=== PATIENT | male | born 1970 | race Caucasian/White ===

== ENCOUNTER 2017-04-20 08:53 | Emergency (ER) | payer BC ==
[~2017-04-20] VITALS: Ht 177.8 cm; Wt 98.5 kg
[2017-04-20] MEDS ORDERED: SODIUM CHLORIDE 0.9% 1000ML 1,000 ML IV SCH (09:15)
[2017-04-20] MEDS ORDERED: SODIUM CHLORIDE 0.9% 1000ML 1,000 ML IV STA (09:15)
--- NOTE | 2017-04-20 09:16 | EMERGENCY ROOM VISIT NOTE ---
History Report prepared by Osmar: Eliza Hughes Under the Supervision of: Dr. Germain Covarrubias M.D. First contact with patient: 09:05 Chief Complaint: DIZZY Stated Complaint: NUMBNESS IN R HAND AND FACE,DIZZY History of Present Illness The patient is a 46 year old male who presents to the Emergency Room with complaints of persistent right hand numbness that began around 2100 last evening. He currently rates his discomfort as a 5/10 in severity. The patient reports he was sitting at his computer when his symptoms began. He states that he began feeling dizzy and weak. The patient states that he had a sharp pain in the back of his neck. He denies any headache or head injury. The patient additionally reports nausea. He reports noticing a rash to his left side but states that it has resolved. The patient states that he has a history of throat cancer, noting that he has been in remission since 2010. Source of History: patient Onset: 2100 last evening Position: hand (right) Symptom Intensity: 5/10 Quality: numbness Timing: other (persistent) Associated Symptoms: + nausea, + weakness, + rash, No headache Note: Associated Symptoms: dizzy Review of Systems See HPI for pertinent positives & negatives. A total of 10 systems reviewed and were otherwise negative. Past Medical & Surgical Medical Problems: (1) Acid reflux (2) Throat cancer (3) TIA (transient ischemic attack) Surgical Problems: (1) History of appendectomy (2) History of herniorrhaphy Family History Cancer Diabetes mellitus Hypertension Social History Smoking Status: Never Smoker Smokeless Tobacco Use: No Alcohol Use: occasionally Marital Status: Housing Status: lives with family Occupation Status: employed Current/Historical Medications No Active Prescriptions or Reported Meds Allergies Coded Allergies: No Known Allergies (Unverified , 04/20/17) Uncoded Allergies: SOME FRIUTS (Allergy, Unknown, SWELLING IN THE THROAT, 07/11/04) Physical Exam Vital Signs Date Time Temp Pulse Resp B/P (MAP) Pulse Ox O2 Delivery O2 Flow Rate FiO2 04/20/17 10:09 95 Room Air 04/20/17 10:09 96 17 148/108 96 Room Air 04/20/17 09:13 109 04/20/17 08:59 36.5 107 18 148/102 99 Room Air Physical Exam GENERAL: Patient is a healthy-appearing well-nourished male HEAD: Normocephalic atraumatic EYES: Ocular movements intact pupils equal and react to light OROPHARYNX mucous membranes are moist no exudates present no erythema or edema present NECK: Supple no nuchal rigidity CHEST: Good equal expansion LUNGS: Clear and equal to auscultation CARDIAC: Normal S1 and S2 ABDOMEN: Soft nontender no guarding BACK: No CVA tenderness EXTREMITIES: No pain upon palpation normal muscle strength in all groups no clubbing cyanosis or edema NEURO: Patient is following commands and answering questions appropriately. Alert and oriented x3 Cranial Nerves 2-12 grossly intact Medical Decision & Procedures ER Provider Diagnostic Interpretation: Radiology results as stated below per my review and radiologist interpretation: HEAD WITHOUT CONTRAST (CT) CLINICAL HISTORY: 46 years-old Male with Stroke. Acute right-sided numbness and dizziness. TECHNIQUE: Multiple axial CT images of the head were obtained without contrast. A dose lowering technique was utilized adhering to the principles of ALARA. CT DOSE: 669.45 mGycm COMPARISON: None. FINDINGS: No acute intracranial hemorrhage, midline shift, mass, large territorial ischemia or abnormal extra-axial collection. The calvarium is intact. The paranasal sinuses, mastoid air cells, and middle ear cavities are clear. IMPRESSION: No acute intracranial abnormality. The above report was generated using voice recognition software. It may contain grammatical, syntax or spelling errors. Electronically signed by: Joe Jaffe M.D. 04/20/2017 9:42 AM Dictated Date/Time: 04/20/2017 9:41 AM CHEST ONE VIEW PORTABLE HISTORY: 46 years-old Male Stroke acute dizziness with right hand numbness. COMPARISON: Upper GI 11/30/2009 TECHNIQUE: Portable upright AP view of the chest. FINDINGS: Marked elevation left hemidiaphragm is again seen with gaseous distention of the stomach. Cardiac silhouette is within normal limits. There is no pneumothorax or pleural effusion. Left basilar subsegmental atelectasis or scarring is present. The bones are grossly intact. There is a partially imaged chondroid appearing lesion of the proximal right humerus, 2.1 cm. IMPRESSION: 1. No acute cardiopulmonary process. 2. Redemonstration of marked left hemidiaphragm elevation with subsegmental left basilar atelectasis or scarring. 3. Partially imaged chondroid appearing lesion of the proximal right humerus measuring up to 2.1 cm suggests endochondroma. This could be further evaluated with dedicated humeral radiographs. The above report was generated using voice recognition software. It may contain grammatical, syntax or spelling errors. Electronically signed by: Joe Jaffe M.D. 04/20/2017 9:38 AM Dictated Date/Time: 04/20/2017 9:32 AM Laboratory Results 04/20/17 09:18 Red Blood Count 5.12, Mean Corpuscular Volume 90.8, Mean Corpuscular Hemoglobin 32.8, Mean Corpuscular Hemoglobin Concent 36.1, Mean Platelet Volume 9.3, Neutrophils (%) (Auto) 83.0, Lymphocytes (%) (Auto) 11.1, Monocytes (%) (Auto) 5.4, Eosinophils (%) (Auto) 0.1, Basophils (%) (Auto) 0.2, Neutrophils # (Auto) 6.96, Lymphocytes # (Auto) 0.93, Monocytes # (Auto) 0.45, Eosinophils # (Auto) 0.01, Basophils # (Auto) 0.02 04/20/17 09:18 Test 04/20/17 09:10 04/20/17 09:18 04/20/17 09:19 04/20/17 09:20 Urine Color YELLOW Urine Appearance CLEAR (CLEAR) Urine pH 6.5 (4.5-7.5) Urine Specific [place] 1.027 (1.000-1.030) Urine Protein 1+ (NEG) Urine Glucose (UA) 1+ (NEG) Urine Ketones TRACE (NEG) Urine Occult Blood NEG (NEG) Urine Nitrite NEG (NEG) Urine Bilirubin NEG (NEG) Urine Urobilinogen NEG (NEG) Urine Leukocyte Esterase NEG (NEG) Urine WBC (Auto) 1-5 /hpf (0-5) Urine RBC (Auto) 0-4 /hpf (0-4) Urine Hyaline Casts (Auto) 5-10 /lpf (0-5) Urine Epithelial Cells (Auto) >30 /lpf (0-5) Urine Bacteria (Auto) NEG (NEG) Urine Renal Epithelial Cells /lpf (0-5) Urine Pathogenic Casts 0-3 GRANULAR CASTS /lpf (0) Urine Mucus PRESENT (NONE PRSENT) White Blood Count 8.39 K/uL (4.8-10.8) Red Blood Count 5.12 M/uL (4.7-6.1) Hemoglobin 16.8 g/dL (14.0-18.0) Hematocrit 46.5 % (42-52) Mean Corpuscular Volume 90.8 fL (80-100) Mean Corpuscular Hemoglobin 32.8 pg (25-34) Mean Corpuscular Hemoglobin Concent 36.1 g/dl (32-36) Platelet Count 208 K/uL (130-400) Mean Platelet Volume 9.3 fL (7.4-10.4) Neutrophils (%) (Auto) 83.0 % Lymphocytes (%) (Auto) 11.1 % Monocytes (%) (Auto) 5.4 % Eosinophils (%) (Auto) 0.1 % Basophils (%) (Auto) 0.2 % Neutrophils # (Auto) 6.96 K/uL (1.4-6.5) Lymphocytes # (Auto) 0.93 K/uL (1.2-3.4) Monocytes # (Auto) 0.45 K/uL (0.11-0.59) Eosinophils # (Auto) 0.01 K/uL (0-0.5) Basophils # (Auto) 0.02 K/uL (0-0.2) RDW Standard Deviation 41.9 fL (36.4-46.3) RDW Coefficient of Variation 12.6 % (11.5-14.5) Immature Granulocyte % (Auto) 0.2 % Immature Granulocyte # (Auto) 0.02 K/uL (0.00-0.02) Prothrombin Time 11.2 SECONDS (9.0-12.0) Prothromb Time International Ratio 1.0 (0.9-1.1) Activated Partial Thromboplast Time 23.5 SECONDS (21.0-31.0) Partial Thromboplastin Ratio 0.9 Anion Gap 6.0 mmol/L (3-11) Est Creatinine Clear Calc Drug Dose 134.1 ml/min Estimated GFR () 123.5 Estimated GFR (Non- 106.6 BUN/Creatinine Ratio 10.4 (10-20) Estimated Average Glucose 91 mg/dl Hemoglobin A1c 4.8 % (4.5-5.6) Calcium Level 9.4 mg/dl (8.5-10.1) Total Creatine Kinase 93 U/L (39-308) Creatine Kinase MB 0.7 ng/ml (0.5-3.6) Creatine Kinase MB Ratio 0.8 (0-3.0) Troponin I < 0.015 ng/ml (0-0.045) Bedside Glucose 128 mg/dl (70-99) Bedside Prothrombin Time INR 1.0 (0.9-1.1) Test 04/20/17 10:02 Lyme Disease IgG Antibody NEG (NEG) Lyme Disease IgM Antibody NEG (NEG) Labs reviewed by ED physician. Medications Administered Medications (Trade) Dose Ordered Sig/Flako Route Start Time Stop Time Status Last Admin Dose Admin Sodium Chloride 1,000 ml @ 50 mls/hr Q20H IV 04/20/17 09:15 05/20/17 09:14 04/20/17 10:51 50 MLS/HR Sodium Chloride 1,000 ml @ 999 mls/hr Q1H1M STAT IV 04/20/17 09:15 04/20/17 10:15 DC 04/20/17 09:30 999 MLS/HR Aspirin (Aspirin Chew) 324 mg NOW STAT PO 04/20/17 09:43 04/20/17 09:44 DC 04/20/17 10:13 324 MG Ondansetron HCl (Zofran Inj) 4 mg NOW STAT IV 04/20/17 10:38 04/20/17 10:39 DC 04/20/17 10:50 4 MG ECG Indication: weakness Rate (beats per minute): 109 Rhythm: sinus tachycardia Findings: no acute ischemic change, no ectopy ED Course 0909: Past medical records reviewed. The patient was evaluated in room A12B. A complete history and physical examination was performed. 0915: Ordered Sodium Chloride 1000 ml @ 999 mls/hr IV, Sodium Chloride 1000 ml @ 50 mls/hr IV. 0943: Ordered Aspirin 324 mg PO. 1020: I reevaluated the patient and he is resting. I discussed the exam findings with him and I discussed the treatment plan. He verbalized complete understanding and agreement. He will be evaluated for further treatment. 1026: I discussed the patients case with Dr. Graves [facility]. He is going to evaluate the patient for further treatment. 1038: Ordered Zofran Inj 4 mg IV. Medical Decision Differential diagnosis: Etiologies such as metabolic, infection, hypo/hyperglycemia, electrolyte abnormalities, cardiac sources, intracerebral event, toxicologic, neurologic, as well as others were entertained. This is a 46-year-old male who presents emergency department complaining of right sided facial numbness as well as right sided arm numbness. The patient is also hypertensive. The patient does not normally follow-up with his primary care physician and is on no medications. He does have a history of throat cancer and based on these findings I felt that the patient should be admitted for stroke workup. An IV was established, patient given normal saline bolus, aspirin. Repeat examination revealed improvement patient's symptoms. I did discuss the case with the hospitalist who agreed to admit the patient. Patient was in agreement with the treatment plan. Medication Reconcilliation Current Medication List: was personally reviewed by me Blood Pressure Screening Patient's blood pressure: Elevated blood pressure Blood pressure disposition: Referred to PCP Consults Time Called: 1021 Consulting Physician: BARBARA Herndon Returned Call: 1026 I discussed the patients case with BARBARA Herndon. He is going to evaluate the patient for further treatment. Impression Primary Impression: Numbness on right side Scribe Attestation The scribe's documentation has been prepared under my direction and personally reviewed by me in its entirety. I confirm that the note above accurately reflects all work, treatment, procedures, and medical decision making performed by me. Departure Information Dispostion Being Evaluated By Hospitalist Prescriptions No Active Prescriptions or Reported Meds Referrals Jamar Freed M.D. (PCP) Stroke History Time Last Known Well 2100 last evening Stroke t-PA Criteria Reviewed Does NOT meet criteria for t-PA Reason t-PA Not Given Treatment not indicated
[2017-04-20 09:37] LABS: BASO % 0.2 %; BASO ABS # 0.02 K/uL (0-0.2); COMPLETE YES; EOS % 0.1 %; HEMATOCRIT 46.5 % (42-52); IG% 0.2 %; LYMPH % 11.1 %; LYMPH ABS # 0.93 K/uL (1.2-3.4); MEAN CELL VOLUME 90.8 fL (80-100); MEAN CORPUSCULAR HEMOGLOBIN 32.8 pg (25-34); MEAN CORPUSCULAR HGB CONC 36.1 g/dl (32-36); MEAN PLATELET VOLUME 9.3 fL (7.4-10.4); MONO % 5.4 %; PLATELET COUNT 208 K/uL (130-400); RED BLOOD COUNT 5.12 M/uL (4.7-6.1); WHITE BLOOD COUNT 8.39 K/uL (4.8-10.8)
--- NOTE | 2017-04-20 09:39 | DIAGNOSTIC IMAGING REPORT ---
CHEST ONE VIEW PORTABLE HISTORY: 46 years-old Male Stroke acute dizziness with right hand numbness. COMPARISON: Upper GI 11/30/2009 TECHNIQUE: Portable upright AP view of the chest. FINDINGS: Marked elevation left hemidiaphragm is again seen with gaseous distention of the stomach. Cardiac silhouette is within normal limits. There is no pneumothorax or pleural effusion. Left basilar subsegmental atelectasis or scarring is present. The bones are grossly intact. There is a partially imaged chondroid appearing lesion of the proximal right humerus, 2.1 cm. IMPRESSION: 1. No acute cardiopulmonary process. 2. Redemonstration of marked left hemidiaphragm elevation with subsegmental left basilar atelectasis or scarring. 3. Partially imaged chondroid appearing lesion of the proximal right humerus measuring up to 2.1 cm suggests endochondroma. This could be further evaluated with dedicated humeral radiographs. The above report was generated using voice recognition software. It may contain grammatical, syntax or spelling errors. Electronically signed by: Joe Jaffe M.D. 04/20/2017 9:38 AM Dictated Date/Time: 04/20/2017 9:32 AM
[2017-04-20 09:40] LABS: URINE APPEARANCE CLEAR (CLEAR); URINE BILIRUBIN NEG (NEG); URINE COLOR YELLOW; URINE EPITHELIAL CELL AUTO >30 /lpf (0-5); URINE NITRITE NEG (NEG); URINE PH 6.5 (4.5-7.5); URINE SPECIFIC GRAVITY 1.027 (1.000-1.030); UROBILINOGEN NEG (NEG); ZZUR CULT IF INDIC CLEAN CATCH NO
[2017-04-20 09:43] LABS: MANUAL MICROSCOPIC REQUIRED? NO; REVIEW REQ? YES
[2017-04-20] MEDS ORDERED: ASPIRIN 81 MG CHEW PO STA (09:43)
--- NOTE | 2017-04-20 09:43 | DIAGNOSTIC IMAGING REPORT ---
HEAD WITHOUT CONTRAST (CT) CLINICAL HISTORY: 46 years-old Male with Stroke. Acute right-sided numbness and dizziness. TECHNIQUE: Multiple axial CT images of the head were obtained without contrast. A dose lowering technique was utilized adhering to the principles of ALARA. CT DOSE: 669.45 mGycm COMPARISON: None. FINDINGS: No acute intracranial hemorrhage, midline shift, mass, large territorial ischemia or abnormal extra-axial collection. The calvarium is intact. The paranasal sinuses, mastoid air cells, and middle ear cavities are clear. IMPRESSION: No acute intracranial abnormality. The above report was generated using voice recognition software. It may contain grammatical, syntax or spelling errors. Electronically signed by: Joe Jaffe M.D. 04/20/2017 9:42 AM Dictated Date/Time: 04/20/2017 9:41 AM
[2017-04-20 09:46] LABS: PARTIAL THROMBOPLASTIN RATIO 0.9; PROTHROMBIN TIME (PATIENT) 11.2 SECONDS (9.0-12.0)
[2017-04-20 09:52] LABS: URINE MUCUS PRESENT (NONE PRSENT)
[2017-04-20 09:58] LABS: URINE PATH CASTS 0-3 GRANULAR CASTS /lpf (0)
[2017-04-20 09:59] LABS: BLOOD UREA NITROGEN 8 mg/dl (7-18); BUN/CREATININE RATIO 10.4 (10-20); CALCIUM 9.4 mg/dl (8.5-10.1); CARBON DIOXIDE 27 mmol/L (21-32); CHLORIDE 102 mmol/L (98-107); CREATININE 0.81 mg/dl (0.60-1.40); GLUCOSE 134 mg/dl (70-99); POTASSIUM 3.7 mmol/L (3.5-5.1); SODIUM 135 mmol/L (136-145)
[2017-04-20 10:04] LABS: CKMB/CK RATIO 0.8 (0-3.0)
[2017-04-20] MEDS ORDERED: ALUMINUM/MAGNESIUM/SIMETH (MAALOX MAX) 30 ML UDC PO PRN (10:30)
[2017-04-20] MEDS ORDERED: HydrALAZINE HCL 20 MG/ML VIAL IV PRN (10:30)
[2017-04-20] MEDS ORDERED: ACETAMINOPHEN 325 MG TAB PO PRN (10:30)
[2017-04-20] MEDS ORDERED: PHARMACIST DISCHARGE MED REC CONSULT PRN (10:30)
[2017-04-20] MEDS ORDERED: LORAZEPAM 0.5 MG TAB PO PRN (10:30)
[2017-04-20] MEDS ORDERED: ONDANSETRON INJ 2 MG/ML 2 ML VIAL IV PRN (10:30)
[2017-04-20] MEDS ORDERED: LORAZEPAM 2 MG/ML 1 ML VIAL IV PRN ×2 (10:30)
[2017-04-20] MEDS ORDERED: ONDANSETRON INJ 2 MG/ML 2 ML VIAL IV STA (10:38)
[2017-04-20 11:15] VITALS: O2SAT 98; Ht 177.8 cm; Wt 98.5 kg
[2017-04-20 11:20] LABS: LYME DISEASE AB IGG NEG (NEG); LYME DISEASE AB IGM NEG (NEG)
[2017-04-20 11:53] LABS: ESTIMATED AVERAGE GLUCOSE 91 mg/dl; HA1C FLAG Normal (Normal)
--- NOTE | 2017-04-20 12:05 | DIAGNOSTIC IMAGING REPORT ---
MRA HEAD WITHOUT CONTRAST HISTORY: Mental status change Stroke - Attention to [place] TECHNIQUE: 3-D [id number] MRA of the brain was performed without contrast. COMPARISON STUDY: None. FINDINGS: Visualized intracranial internal carotid arteries, distal vertebral arteries, and basilar artery are widely patent. There is no significant stenosis, occlusion, or aneurysm seen within the bilateral ACAs, MCAs, or boiler tender. IMPRESSION: No significant stenosis, occlusion, or aneurysm within the [place]. The above report was generated using voice recognition software. It may contain grammatical, syntax or spelling errors. Electronically signed by: Alex Mclaughlin M.D. 04/20/2017 12:03 PM Dictated Date/Time: 04/20/2017 12:02 PM
--- NOTE | 2017-04-20 12:25 | DIAGNOSTIC IMAGING REPORT ---
BRAIN COMBO CLINICAL HISTORY: Stroke mental status change COMPARISON STUDY: No previous studies for comparison. TECHNIQUE: Utilizing a 1.5 Rashida magnet and dedicated coil, multiplanar, multiecho imaging of the brain was performed pre and postcontrast administration. IV administration of 10 mL of Gadavist contrast was uneventful. FINDINGS: Diffusion images are negative for an acute ischemic event. Signal characteristics of the cerebellar as well as cerebral hemispheres are unremarkable. No abnormal postcontrast enhancement. Ventricular system is midline. Internal auditory canals are symmetric. Sella and parasellar regions are unremarkable. IMPRESSION: Negative study The above report was generated using voice recognition software. It may contain grammatical, syntax or spelling errors. Electronically signed by: Alex Mclaughlin M.D. 04/20/2017 12:24 PM Dictated Date/Time: 04/20/2017 12:18 PM
[2017-04-20 13:33] VITALS: BP 129/87; PULSE 102; TEMP 36.6; O2SAT 100
[2017-04-20] MEDS ORDERED: IV FLUIDS COMPLETED PRN (14:00)
[2017-04-20] MEDS ORDERED: LORAZEPAM INJ 0.5 MG in SYRINGE 0.75 ML IV PRN (14:00)
[2017-04-20] MEDS ORDERED: LORAZEPAM INJ 1 MG in SYRINGE 0.5 ML IV PRN (14:00)
[2017-04-20] MEDS ORDERED: ENOXAPARIN 40 MG/0.4 ML SYR SC SCH (14:30)
[2017-04-20 15:27] VITALS: BP 114/79; PULSE 103; TEMP 36.8; O2SAT 95
[2017-04-20 16:01] VITALS: O2SAT 95
--- NOTE | 2017-04-20 17:08 | Discharge Instructions ---
Discharge Instructions Date of Service Apr 20, 2017. Admission Reason for Admission: Tia (Transient Ischemic Attack) Discharge Discharge Diagnosis / Problem: right hand numbness consider cervical muscle spasm Discharge Goals Goal(s): Diagnostic testing, Therapeutic intervention Activity Recommendations Activity Limitations: as noted below Lifting Limitations: gradually increase as tolerated . Current Hospital Diet Patient's current hospital diet: Regular Diet Discharge Diet Recommended Diet: Regular Diet Pending Studies Studies pending at discharge: yes List of pending studies: formal echo, preliminary is negative Laboratory Results Hemoglobin A1c Test 04/20/17 09:18 Range/Units Estimated Average Glucose 91 mg/dl Hemoglobin A1c 4.8 4.5-5.6 % Medical Emergencies . Who to Call and When: Medical Emergencies: If at any time you feel your situation is an emergency, please call 911 immediately. . Non-Emergent Contact Non-Emergency issues call your: Primary Care Provider Call Non-Emergent contact if: temperature is above 101, your pain is unusual for you . . "Provider Documentation" section prepared by Clement Graves. . Director Of Cloud Services Recommendations Director Of Cloud Services Recommendations: Try to rest your neck you may use ibuprofen or aleve if it does not irritate your stomach consider a heating pad, or warm pack/patch to your neck follow up with your primary care doctor if your problem persists VTE Core Measure Inpt VTE Proph given/why not?: Enoxaparin (Lovenox)SQ
[2017-04-20 17:12] VITALS: BP 114/79; PULSE 103; TEMP 36.8; O2SAT 95
--- NOTE | 2017-04-20 17:30 | ECHOCARDIOGRAM REPORT ---
*NOTICE TO RECEIVING REPUBLICAN AGENCY This information is strictly Confidential and protected under [place] law. [place] law prohibits you from making any further disclosure of this information unless further disclosure is expressly permitted by the written consent of the person to whom it pertains or is authorized by law. A general authorization for the release of medical or other information is not sufficient for this purpose. Hospital accepts no responsibility if the information is made available to any other person, INCLUDING THE PATIENT. Interpretation Summary * Name: ANALI CHAKRABORTY Study Date: 04/20/2017 03:27 PM BP: 133/97 mmHg * Patient Location: [facility] HR: 105 * : 1970 (M/d/yyyy) Gender: Male Height: 70 in * Age: 46 yrs Ethnicity: CA Weight: 217 lb * Ordering Physician: Clement Graves * Referring Physician: Self, Referred * Performed By: Iman Lambert RDCS * * Reason For Study: Cerebral ischemia/embolus * BSA: 2.2 m2 * -- Conclusions -- * 1. Grossly normal left ventricular size and systolic function. No definite regional wall motion abnormalities, but cannot exclude wall motion abnormalities given poor image quality. * 2. No significant valvular abnormalities visualized, however valves were not well seen. * 3. Technically difficult study with poor image quality. * 4. No obvious right to left inter atrial shunt noted following agitated saline injection. * 5. No prior study available for comparison. Procedure Details * A complete two-dimensional transthoracic echocardiogram was performed (2D, M-mode, Doppler and color flow Doppler). * A saline contrast injection was performed to assess for cardiac shunting. * The injection was performed through an intravenous line in the left arm. * The attending nurse who injected the saline contrast was Priscilla Rivera RN. * A total of 30 cc of agitated saline was given. * The study was technically limited. * The study was technically difficult. * Technical limitations due to heart positioning. Heart lies toward the right side of the patient's chest. Left Ventricle * Grossly normal left ventricular size and systolic function. No definite regional wall motion abnormalities, but cannot exclude wall motion abnormalities given poor image quality. Right Ventricle * The right ventricle is grossly normal size. * The right ventricular systolic function is normal as assessed by tricuspid annular plane systolic excursion (TAPSE) (normal >1.5 cm). Atria * The left atrial size is normal. * Right atrial size is normal. * There is no evidence of atrial septal defect, but resolution does not allow assessment for a patent foramen ovale. * No obvious right to left inter atrial shunt noted following agitated saline injection. Mitral Valve * The mitral valve is grossly normal. * There is no mitral valve stenosis. * Significant mitral regurgitation is absent. Tricuspid Valve * The tricuspid valve is not well visualized. * There is no tricuspid stenosis. * Significant tricuspid regurgitation is absent. Aortic Valve * The aortic valve opens well. * The aortic valve is trileaflet. * No hemodynamically significant valvular aortic stenosis. * There is no significant aortic regurgitation. Pulmonic Valve * The pulmonary valve is inadequately visualized, but the Doppler data is adequate for interpretation. * There is no pulmonic valvular stenosis. * There is no significant pulmonary regurgitation. Pericardium/Pleural * There is no pericardial effusion. Great Vessels * IVC not well visualized. MMode 2D Measurements and Calculations Ao root diam 3.3 cm Ao root area 8.8 cm\S\2 asc Aorta Diam 2.8 cm Doppler Measurements and Calculations MV E max caterina 74.2 cm/sec MV A max caterina 83.9 cm/sec MV E/A 0.88 MV dec time 0.17 sec Ao V2 max 105.9 cm/sec Ao max PG 4.5 mmHg Ao max PG (full) 0.37 mmHg LV V1 max PG 4.1 mmHg LV V1 max 101.4 cm/sec PA V2 max 69.8 cm/sec PA max PG 1.9 mmHg PA acc slope 530.8 cm/sec\S\2 PA acc time 0.12 sec PA pr(Accel) 25.1 mmHg
--- NOTE | 2017-04-20 17:42 | History and Physical ---
History & Physical Date & Time of Service: Apr 20, 2017 at 17:38 Chief Complaint: Tia (Transient Ischemic Attack) Primary Care Physician: No Doctor, Assigned History of Present Illness This patient presents the ER with right hand numbness with just began last evening while sitting at the computer. 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 At no time did the noticed facial droop or asymmetry or any palmar drift or discoordination with his hands or arms and likewise the patient did not notice anything when signing his name or getting dressed. The patient does have a history of head and neck cancer for which she was treated with radiation therapy and chemotherapy 2011 has been "disease-free" even with last PET scan Screening laboratories in the ER are negative as well as CT scan patient is observed Past Medical/Surgical History Medical Problems: (1) Acid reflux Status: Chronic (2) Throat cancer Status: Resolved Surgical Problems: (1) History of appendectomy Status: Resolved (2) History of herniorrhaphy Status: Resolved Family History Cancer Diabetes mellitus Hypertension Social History Smoking Status: Never Smoker Smokeless Tobacco Use: No Marital Status: Occupational Status: employed Multi-Drug Resistant Organisms History of MDRO: No Allergies Coded Allergies: No Known Allergies (Unverified , 04/20/17) Uncoded Allergies: SOME FRIUTS (Allergy, Unknown, SWELLING IN THE THROAT, 07/11/04) Home Medications No Active Prescriptions or Reported Meds Review of Systems ROS: well nourished well developed No double vision blurry vision No problems with speech or swallowing No palpitations, chest pain or pressure No Wheezing or breathing issues No abdominal pain nausea vomiting diarrhea changes in appetite or weight No burning urine urine frequency or changes in color No focal joint pain or posterior neck spasm No skin rashes or oral lesions No unusual bruising or bleeding No focused back pain or numbness or loss of strength No changes in memory or confusion Physical Exam Vital Signs Date Time Temp Pulse Resp B/P (MAP) Pulse Ox O2 Delivery O2 Flow Rate FiO2 04/20/17 17:12 36.8 103 18 95 Room Air 04/20/17 16:01 95 Room Air 04/20/17 15:27 36.8 103 18 114/79 (91) 95 Room Air 04/20/17 13:33 36.6 102 20 129/87 (101) 100 Room Air 04/20/17 11:33 105 16 133/97 98 04/20/17 11:21 105 16 133/97 98 04/20/17 11:15 98 Room Air 04/20/17 10:09 95 Room Air 04/20/17 10:09 96 17 148/108 96 Room Air 04/20/17 09:13 109 04/20/17 08:59 36.5 107 18 148/102 99 Room Air General Appearance: WD/WN, no apparent distress Head: normocephalic, atraumatic Eyes: PERRL, EOMI ENT: hearing grossly normal, pharynx normal Respiratory/Chest: chest non-tender, lungs clear, normal breath sounds Cardiovascular: regular rate, rhythm, no murmur Abdomen/GI: normal bowel sounds, non tender, soft Back: no CVA tenderness, no muscle spasm, normal range of motion Extremities/Musculoskelatal: normal capillary refill, no pedal edema, normal range of motion 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, no motor/sensory deficits, alert Skin: normal color, warm/dry, no rash Diagnostics Laboratory Results Results Past 24 Hours Test 04/20/17 09:10 04/20/17 09:18 04/20/17 09:19 04/20/17 09:20 Range/Units Urine Color YELLOW Urine Appearance CLEAR CLEAR Urine pH 6.5 4.5-7.5 Urine Specific [place] 1.027 1.000-1.030 Urine Protein 1+ NEG Urine Glucose (UA) 1+ NEG Urine Ketones TRACE NEG Urine Occult Blood NEG NEG Urine Nitrite NEG NEG Urine Bilirubin NEG NEG Urine Urobilinogen NEG NEG Urine Leukocyte Esterase NEG NEG Urine WBC (Auto) 1-5 0-5 /hpf Urine RBC (Auto) 0-4 0-4 /hpf Urine Hyaline Casts (Auto) 5-10 0-5 /lpf Urine Epithelial Cells (Auto) >30 0-5 /lpf Urine Bacteria (Auto) NEG NEG Urine Renal Epithelial Cells 0-5 /lpf Urine Pathogenic Casts 0-3 GRANULAR CASTS 0 /lpf Urine Mucus PRESENT NONE PRSENT White Blood Count 8.39 4.8-10.8 K/uL Red Blood Count 5.12 4.7-6.1 M/uL Hemoglobin 16.8 14.0-18.0 g/dL Hematocrit 46.5 42-52 % Mean Corpuscular Volume 90.8 80-100 fL Mean Corpuscular Hemoglobin 32.8 25-34 pg Mean Corpuscular Hemoglobin Concent 36.1 32-36 g/dl Platelet Count 208 130-400 K/uL Mean Platelet Volume 9.3 7.4-10.4 fL Neutrophils (%) (Auto) 83.0 % Lymphocytes (%) (Auto) 11.1 % Monocytes (%) (Auto) 5.4 % Eosinophils (%) (Auto) 0.1 % Basophils (%) (Auto) 0.2 % Neutrophils # (Auto) 6.96 1.4-6.5 K/uL Lymphocytes # (Auto) 0.93 1.2-3.4 K/uL Monocytes # (Auto) 0.45 0.11-0.59 K/uL Eosinophils # (Auto) 0.01 0-0.5 K/uL Basophils # (Auto) 0.02 0-0.2 K/uL RDW Standard Deviation 41.9 36.4-46.3 fL RDW Coefficient of Variation 12.6 11.5-14.5 % Immature Granulocyte % (Auto) 0.2 % Immature Granulocyte # (Auto) 0.02 0.00-0.02 K/uL Prothrombin Time 11.2 9.0-12.0 SECONDS Prothromb Time International Ratio 1.0 0.9-1.1 Activated Partial Thromboplast Time 23.5 21.0-31.0 SECONDS Partial Thromboplastin Ratio 0.9 Sodium Level 135 136-145 mmol/L Potassium Level 3.7 3.5-5.1 mmol/L Chloride Level 102 98-107 mmol/L Carbon Dioxide Level 27 21-32 mmol/L Anion Gap 6.0 3-11 mmol/L Blood Urea Nitrogen 8 7-18 mg/dl Creatinine 0.81 0.60-1.40 mg/dl Est Creatinine Clear Calc Drug Dose 134.1 ml/min Estimated GFR () 123.5 Estimated GFR (Non- 106.6 BUN/Creatinine Ratio 10.4 10-20 Random Glucose 134 70-99 mg/dl Estimated Average Glucose 91 mg/dl Hemoglobin A1c 4.8 4.5-5.6 % Calcium Level 9.4 8.5-10.1 mg/dl Total Creatine Kinase 93 39-308 U/L Creatine Kinase MB 0.7 0.5-3.6 ng/ml Creatine Kinase MB Ratio 0.8 0-3.0 Troponin I < 0.015 0-0.045 ng/ml Bedside Glucose 128 70-99 mg/dl Bedside Prothrombin Time INR 1.0 0.9-1.1 Test 04/20/17 10:02 Range/Units Lyme Disease IgG Antibody NEG NEG Lyme Disease IgM Antibody NEG NEG Diagnostic Radiology CT head negative CXR normal Normal EKG Impression Assessment and Plan 46-year-old male with a history of cancer presents with transient right arm numbness Patient be evaluated for TIA, MRA will be performed to evaluate vertebral artery patency and [place] as well as MRI for further stroke echocardiogram will be evaluated for embolic source. He'll be given aspirin and statin next Lyme disease will be tested as the patient does have pets and this may be a neurological manifestation of the same Enoxaparin for DVT prevention After evaluation with no further neurological symptoms my initial impression is this may be a radicular pain from cervical muscular spasm due to body mechanics of sitting at a computer and increasing stressors Advanced Directives Existing Living Will: No Existing Power of New Car Salesperson: No VTE Prophylaxis VTE Risk Assessment Done? Y/N: Yes Risk Level: Moderate Given or contraindicated: Enoxaparin (Lovenox)SQ
--- NOTE | 2017-04-20 17:45 | Discharge Summary ---
Discharge Summary Date of Service Apr 20, 2017. Discharge Summary Admission Date: Apr 20, 2017 at 10:49 Discharge Date: Apr 20, 2017 Discharge Disposition: Home Principal Diagnosis: cervical spasm with radicular discomfort Medication Reconciliation Medication Profile: No Active Prescriptions or Reported Meds Discharge Exam Review of Systems: Constitutional: No fever, No chills Respiratory: No cough, No sputum Abdomen: No pain, No nausea Neurologic: + numbness/tingling, No paralysis, No weakness Physical Exam: General Appearance: WD/WN, no apparent distress Neck: supple, no JVD Respiratory/Chest: chest non-tender, lungs clear, normal breath sounds Cardiovascular: regular rate, rhythm, no murmur Abdomen / GI: normal bowel sounds, non tender, soft 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 MRI negative for stroke,echocardiogram negative for embolic source. Lyme disease negative ruling this out as neurological manifestation of the same After evaluation with no further neurological symptoms my initial impression is this may be a radicular pain from cervical muscular spasm due to body mechanics of sitting at a computer and increasing stressors. Recommending nonsteroidals warm heat and primary care follow-up Total Time Spent: Greater than 30 minutes This includes examination of the patient, discharge planning, medication reconciliation, and communication with other providers. Discharge Instructions Please refer to the electronic Patient Visit Report (Discharge Instructions) for additional information.
--- NOTE | 2017-04-21 06:38 | Neurology Progress Notes ---
Neurology Progress Note Date of Service Apr 21, 2017. Subjective patient discharged before seen in neurological consultation Objective Date Time Temp Pulse Resp B/P (MAP) Pulse Ox O2 Delivery O2 Flow Rate FiO2 04/20/17 17:12 36.8 103 18 95 Room Air 04/20/17 16:01 95 Room Air 04/20/17 15:27 36.8 103 18 114/79 (91) 95 Room Air 04/20/17 13:33 36.6 102 20 129/87 (101) 100 Room Air 04/20/17 11:33 105 16 133/97 98 04/20/17 11:21 105 16 133/97 98 04/20/17 11:15 98 Room Air 04/20/17 10:09 95 Room Air 04/20/17 10:09 96 17 148/108 96 Room Air 04/20/17 09:13 109 04/20/17 08:59 36.5 107 18 148/102 99 Room Air Last 24 Hours Test 04/20/17 09:10 04/20/17 09:18 04/20/17 09:19 04/20/17 09:20 Urine Color YELLOW Urine Appearance CLEAR Urine pH 6.5 Urine Specific [place] 1.027 Urine Protein 1+ Urine Glucose (UA) 1+ Urine Ketones TRACE Urine Occult Blood NEG Urine Nitrite NEG Urine Bilirubin NEG Urine Urobilinogen NEG Urine Leukocyte Esterase NEG Urine WBC (Auto) 1-5 /hpf Urine RBC (Auto) 0-4 /hpf Urine Hyaline Casts (Auto) 5-10 /lpf Urine Epithelial Cells (Auto) >30 /lpf Urine Bacteria (Auto) NEG Urine Renal Epithelial Cells /lpf Urine Pathogenic Casts 0-3 GRANULAR CASTS /lpf Urine Mucus PRESENT White Blood Count 8.39 K/uL Red Blood Count 5.12 M/uL Hemoglobin 16.8 g/dL Hematocrit 46.5 % Mean Corpuscular Volume 90.8 fL Mean Corpuscular Hemoglobin 32.8 pg Mean Corpuscular Hemoglobin Concent 36.1 g/dl Platelet Count 208 K/uL Mean Platelet Volume 9.3 fL Neutrophils (%) (Auto) 83.0 % Lymphocytes (%) (Auto) 11.1 % Monocytes (%) (Auto) 5.4 % Eosinophils (%) (Auto) 0.1 % Basophils (%) (Auto) 0.2 % Neutrophils # (Auto) 6.96 K/uL Lymphocytes # (Auto) 0.93 K/uL Monocytes # (Auto) 0.45 K/uL Eosinophils # (Auto) 0.01 K/uL Basophils # (Auto) 0.02 K/uL RDW Standard Deviation 41.9 fL RDW Coefficient of Variation 12.6 % Immature Granulocyte % (Auto) 0.2 % Immature Granulocyte # (Auto) 0.02 K/uL Prothrombin Time 11.2 SECONDS Prothromb Time International Ratio 1.0 Activated Partial Thromboplast Time 23.5 SECONDS Partial Thromboplastin Ratio 0.9 Sodium Level 135 mmol/L Potassium Level 3.7 mmol/L Chloride Level 102 mmol/L Carbon Dioxide Level 27 mmol/L Anion Gap 6.0 mmol/L Blood Urea Nitrogen 8 mg/dl Creatinine 0.81 mg/dl Est Creatinine Clear Calc Drug Dose 134.1 ml/min Estimated GFR () 123.5 Estimated GFR (Non- 106.6 BUN/Creatinine Ratio 10.4 Random Glucose 134 mg/dl Estimated Average Glucose 91 mg/dl Hemoglobin A1c 4.8 % Calcium Level 9.4 mg/dl Total Creatine Kinase 93 U/L Creatine Kinase MB 0.7 ng/ml Creatine Kinase MB Ratio 0.8 Troponin I < 0.015 ng/ml Bedside Glucose 128 mg/dl Bedside Prothrombin Time INR 1.0 Test 04/20/17 10:02 Lyme Disease IgG Antibody NEG Lyme Disease IgM Antibody NEG
[2017-04-21] MEDS ORDERED: ASPIRIN 81 MG ECTAB PO SCH (09:00)
[2017-04-21] MEDS ORDERED: ATORVASTATIN 40 MG TAB PO SCH (09:00)
== END 2017-04-20 17:44 | disposition home or self-care (01) ==
LOC: C.EDB 08:54 → C.MED 10:49 → ENRESERV 11:14
PROVIDERS: ADMIT Internal Medicine; ATTEND Internal Medicine
DX: M62.838 Other muscle spasm (principal); R20.0 Anesthesia of skin; K21.9 Gastro-esophageal reflux disease without esophagitis; Z85.818 Personal history of malignant neoplasm of other sites of lip, oral cavity, and pharynx; Z86.73 Personal history of transient ischemic attack (TIA), and cerebral infarction without residual deficits; Z83.3 Family history of diabetes mellitus; Z82.49 Family history of ischemic heart disease and other diseases of the circulatory system